=== PATIENT | male | born 1990 | race Two or more races ===

== ENCOUNTER 2023-03-21 03:01 | Emergency (ER) | payer OTHER ==
[2023-03-21] MEDS ORDERED: SODIUM CHLORIDE 0.9% 1,000 ML IV STA (03:17)
[2023-03-21] MEDS ORDERED: ONDANSETRON 4 MG/2 ML VIAL IVP STA (03:17)
[2023-03-21 03:21] VITALS: BP 143/72; O2SAT 99
--- NOTE | 2023-03-21 03:25 | ED Physician Documentation ---
PD HPI NVD - Stated complaint Stated Complaint: V/D - Chief complaint Chief Complaint: Abd Pain - History obtained from History obtained from: Patient - Additonal information Additional information: No reported past medical history, presenting for 8-9 episodes of nonbloody nonbilious emesis and diarrhea. Numerous family members sick at home with similar symptoms. Feels lightheaded and nauseous. Review of Systems Constitutional: denies: Fever, Chills GI: reports: Nausea, Vomiting, Diarrhea. denies: Abdominal Pain : denies: Dysuria, Frequency Neurologic: denies: Generalized weakness, Focal weakness, Numbness PD PAST MEDICAL HISTORY - Past Medical History Past Medical History: Yes : Retention - Past Surgical History Past Surgical History: No - Present Medications Home Medications: Ambulatory Orders Medication Instructions Recorded Confirmed Ondansetron Odt [Zofran] 4 mg TL Q6H PRN #30 tablet 03/21/23 Tamsulosin HCl [Flomax] 0.4 mg PO DAILY 03/21/23 03/21/23 - Allergies Allergies/Adverse Reactions: Allergies Allergy/AdvReac Type Severity Reaction Status Date / Time No Known Drug Allergies Allergy Verified 03/21/23 03:21 - Social History Does the pt smoke?: No Smoking Status: Never smoker Does the pt drink ETOH?: No Does the pt have substance abuse?: No - Immunizations Immunizations are current?: Yes - POLST Patient has POLST: No PD ED PE NORMAL - Vitals Vital signs reviewed: Yes - General General: Alert and oriented X 3, No acute distress, Well developed/nourished - HEENT HEENT: Atraumatic, Other (mildly dry mucous membranes) - Cardiac Cardiac: RRR, Strong equal pulses - Abdomen Abdomen: Soft, Non tender, Non distended - Derm Derm: Normal color, Warm and dry, No rash - Extremities Extremities: No deformity, No tenderness to palpate, Normal ROM s pain, No edema - Neuro Neuro: Alert and oriented X 3, material handling equipment stevedore 2-12 intact, No motor deficit, Normal speech Results - Vitals Vitals: Vital Signs - 24 hr 03/21/23 03:05 Temperature 36.2 C L Heart Rate 91 Respiratory 20 Rate Blood Pressure 143/72 H O2 Saturation 99 Oxygen O2 Source Room air PD Medical Decision Making - ED course Complexity details: re-evaluated patient, considered differential, d/w patient ED course: Nontoxic-appearing patient with 1 afternoon of nausea and vomiting with diarrhea. Numerous family members sick with similar symptoms, likely a viral GI bug. Will give IV fluids and Zofran and will subsequently p.o. challenge. Patient feels better after antiemetics and fluids. Subsequently able to tolerate p.o. Emphasized brat diet for the next 2 to 3 days. Emphasized need for fluid hydration. Zofran sent to pharmacy of choice. Note for work provided per patient request. Departure - Departure Disposition: 01 Home, Self Care Clinical Impression: Gastroenteritis Instructions: ED Gastroenteritis Viral Prescriptions: Ondansetron Odt [Zofran] 4 mg TL Q6H PRN #30 tablet PRN Reason: Nausea / Vomiting Forms: PCP List
== END 2023-03-21 04:20 | disposition home or self-care (01) ==
LOC: EDBD → ED 03:01
DX: K52.9 Noninfective gastroenteritis and colitis, unspecified (principal)
CPT/HCPCS: 96374; 99283